=== PATIENT | female | born 1965 | race American Indian/Alaskan Native ===

== ENCOUNTER 2020-04-29 16:56 | Emergency (ER) | payer SELFPAY ==
[2020-04-29 17:31] VITALS: BP 142/72
[2020-04-29] MEDS ORDERED: LIDOCAINE VISCOUS 2% 15 ML ORAL LIQD PO ONE (23:32)
[2020-04-29] MEDS ORDERED: ALUM-MAG HYDROXIDE-SIMETHICONE 200-200-20MG/5ML ORAL LIQD 30 ML PO ONE (23:32)
[2020-04-29 23:55] LABS: Basophils % (Auto) 0.5 % (0.0-1.8); Eosinophils # (Auto) 0.1 K/mm3 (0.0-0.4); Eosinophils % (Auto) 0.7 % (0.0-4.3); Hematocrit 37.8 % (30.3-42.9); Hemoglobin 12.5 gm/dl (10.1-14.3); Lymphocytes # (Auto) 2.1 K/mm3 (1.2-5.4); Lymphocytes % (Auto) 26.3 % (13.4-35.0); Mean Corpuscular HGB Conc 33 % (30-34); Mean Corpuscular Volume 91 fl (79-97); Monocytes # (Auto) 0.6 K/mm3 (0.0-0.8); Monocytes % (Auto) 7.9 % (0.0-7.3); Platelet Count 199 K/mm3 (140-440); Red Blood Count 4.14 M/mm3 (3.65-5.03); Red Cell Distribution Width 13.5 % (13.2-15.2)
[2020-04-30 00:19] LABS: Alanine Aminotransferase 13 units/L (7-56); Albumin 4.7 g/dL (3.9-5); Blood Urea Nitrogen 4 mg/dL (7-17); Calcium 10.4 mg/dL (8.4-10.2); Hemolysis Index 2
[2020-04-30 00:22] LABS: BUN/Creatinine Ratio 7
--- NOTE | 2020-04-30 00:32 | XRay Report ---
CHEST PA AND LATERAL VIEWS INDICATION: chest pain. COMPARISON: 07/04/2018 FINDINGS: Support devices: None Heart: Normal and unchanged Lungs/Pleura: No acute pulmonary or pleural findings. IMPRESSION: 1. No acute disease and no interval change. Signer Name: Kris Langley MD Signed: 04/30/2020 12:28 AM Workstation Name: [id number]
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
--- NOTE | 2020-04-30 01:12 | Emergency Department Report ---
ED General Adult HPI - General Chief complaint: Sore Throat Stated complaint: FEELS LIKE SOMETHING STUCK IN CHEST Time Seen by Provider: 04/29/20 23:32 Source: patient Mode of arrival: Ambulatory Limitations: No Limitations - History of Present Illness Initial comments: Patient 54-year-old -[place] female presents for epigastric pain x3 days. States she feels like it something there after taking the Nexium tablet yesterday. Patient denies fevers, chills, nausea vomiting. There is been no fever, chills, or nausea vomiting. Patient is tolerating p.o. intake. There is no shortness of breath, stridor, or other complaint. Symptoms described as 4/10 pain sharp exacerbated by deep inspiration and movement. Symptoms are relieved by rest and offloading. Onset/Timin -: days(s) Location: chest (chest wall ) Severity scale (0 -10): 6 Quality: sharp Consistency: intermittent Improves with: none Worsens with: none Associated Symptoms: chest pain (chest wall pain ). denies: cough, diaphoresis, fever/chills, headaches, loss of appetite, nausea/vomiting, rash, seizure, other Treatments Prior to Arrival: none - Related Data Previous Rx's Medication Instructions Recorded Last Taken Type Metoprolol Xl [Metoprolol 25 mg PO QDAY #30 tablet 11/24/15 Unknown Rx SUCCINATE ER TAB] Esomeprazole Magnesium [Nexium 20 mg PO QDAY #20 capsule. 07/04/18 Unknown Rx 24Hr] Naproxen 500 mg PO BID PRN #30 tablet 04/30/20 Unknown Rx Allergies Allergy/AdvReac Type Severity Reaction Status Date / Time No Known Allergies Allergy Verified 11/22/15 22:26 ED Review of Systems ROS: Stated complaint: FEELS LIKE SOMETHING STUCK IN CHEST Other details as noted in HPI Constitutional: denies: chills, fever Eyes: denies: eye pain, eye discharge, vision change ENT: denies: ear pain, throat pain Respiratory: denies: cough, shortness of breath, wheezing Cardiovascular: denies: chest pain, palpitations Endocrine: see HPI Gastrointestinal: abdominal pain (epigastric burning ), vomiting. denies: nausea, diarrhea, constipation, hematemesis, melena, hematochezia Genitourinary: denies: urgency, dysuria, frequency, hematuria, discharge, dyspareunia Musculoskeletal: denies: back pain, joint swelling, arthralgia Skin: as per HPI Neurological: denies: headache, weakness, paresthesias Psychiatric: denies: anxiety, depression Hematological/Lymphatic: denies: easy bleeding, easy bruising ED Past Medical Hx - Past Medical History Previous Medical History?: Yes Hx Congestive Heart Failure: No Hx Diabetes: No Hx Asthma: No Hx COPD: No Hx HIV: No Additional medical history: palpitations(related to my hormones/menopause) - Surgical History Past Surgical History?: No - Social History Smoking Status: Never Smoker Substance Use Type: Alcohol - Medications Home Medications: Home Medications Medication Instructions Recorded Confirmed Last Taken Type Metoprolol Xl [Metoprolol 25 mg PO QDAY #30 tablet 11/24/15 Unknown Rx SUCCINATE ER TAB] Esomeprazole Magnesium [Nexium 20 mg PO QDAY #20 capsule. 07/04/18 Unknown Rx 24Hr] Naproxen 500 mg PO BID PRN #30 tablet 04/30/20 Unknown Rx ED Physical Exam - General Limitations: No Limitations General appearance: alert, in no apparent distress - Head Head exam: Present: atraumatic, normocephalic - Eye Eye exam: Present: normal appearance, PERRL, EOMI Pupils: Present: normal accommodation - ENT ENT exam: Present: normal exam, normal orophraynx, mucous membranes moist, TM's normal bilaterally, normal external ear exam - Neck Neck exam: Present: normal inspection, tenderness, full ROM, lymphadenopathy. Absent: thyromegaly - Respiratory Respiratory exam: Present: normal lung sounds bilaterally, chest wall tenderness (right anterior lateral , no spepitus, no cyserfl). Absent: respiratory distress, wheezes, stridor - Cardiovascular Cardiovascular Exam: Present: regular rate, normal rhythm, normal heart sounds. Absent: systolic murmur, diastolic murmur, rubs, gallop - GI/Abdominal GI/Abdominal exam: Present: soft, normal bowel sounds. Absent: distended, tenderness, bruit, pulsatile mass - Rectal Rectal exam: Present: deferred - External exam: Present: normal external exam - Extremities Exam Extremities exam: Present: normal inspection - Back Exam Back exam: Present: normal inspection, full ROM. Absent: tenderness - Neurological Exam Neurological exam: Present: alert, oriented X3 - Psychiatric Psychiatric exam: Present: normal affect, normal mood, anxious - Skin Skin exam: Present: warm, dry, intact, normal color. Absent: rash ED Course Vital Signs 04/29/20 17:28 Temperature 99.2 F Pulse Rate 75 Respiratory 18 Rate Blood Pressure 142/72 [Right] O2 Sat by Pulse 100 Oximetry ED Medical Decision Making - Lab Data Result diagrams: 04/29/20 23:41 04/29/20 23:41 Labs 04/29/20 04/29/20 23:41 23:41 WBC 8.1 RBC 4.14 Hgb 12.5 Hct 37.8 MCV 91 MCH 30 MCHC 33 RDW 13.5 Plt Count 199 Lymph % (Auto) 26.3 Shannon % (Auto) 7.9 H Eos % (Auto) 0.7 Baso % (Auto) 0.5 Lymph # (Auto) 2.1 Shannon # (Auto) 0.6 Eos # (Auto) 0.1 Baso # (Auto) 0.0 Seg Neutrophils % 64.6 Seg Neutrophils # 5.2 Sodium 144 Potassium 4.6 Chloride 100.7 Carbon Dioxide 29 Anion Gap 19 BUN 4 L Creatinine 0.6 Estimated GFR > 60 BUN/Creatinine Ratio 7 Glucose 99 Calcium 10.4 H Total Bilirubin 0.50 AST 17 ALT 13 Alkaline Phosphatase 55 Total Protein 8.3 H Albumin 4.7 Albumin/Globulin Ratio 1.3 - Radiology Data Radiology results: report reviewed, image reviewed IMPRESSION: 1. No acute disease and no interval change. Signer Name: Kris Langley MD Signed: 04/30/2020 12:28 AM Workstation Name: [id number] - Medical Decision Making X-ray X normal no infiltrates no opacities. Patient currently tolerating p.o. intake without nausea vomiting. Airway is patent and non-obstructive. EKG normal sinus rhythm no ST elevation no abnormalities. Plan: DC to home prescription for NSAIDs PRN. Continue to take Nexium as needed for acid indigestion and PPI control. Patient will follow-up with GI as scheduled. Patient will follow-up with PCP as scheduled. Critical care attestation.: If time is entered above; I have spent that time in minutes in the direct care of this critically ill patient, excluding procedure time. ED Disposition Clinical Impression: GERD without esophagitis Disposition: DC-01 TO HOME OR SELFCARE Is pt being admited?: No Does the pt Need Aspirin: No Condition: Stable Instructions: Gastroesophageal Reflux Disease (ED), Diet for Ulcers and Gastritis (ED) Prescriptions: Naproxen 500 mg PO BID PRN #30 tablet PRN Reason: pain Referrals: CARLEE MCGINNIS MD [Staff Physician] - 3-5 Days Forms: Work/School Release Form(ED) Time of Disposition: 01:18
== END 2020-04-30 01:25 | disposition home or self-care (01) ==
LOC: ED 16:56
DX: K21.9 Gastro-esophageal reflux disease without esophagitis (principal); Z79.899 Other long term (current) drug therapy
CPT/HCPCS: 36415; 71046; 80053; 85025; 93005

== ENCOUNTER 2020-06-30 03:37 | Emergency (ER) | payer SELFPAY ==
[2020-06-30 04:01] VITALS: BP 118/67
[2020-06-30] MEDS ORDERED: ASPIRIN EC 325 MG TAB PO ONE (04:31)
[2020-06-30 05:24] LABS: Basophils % (Auto) 0.4 % (0.0-1.8); Eosinophils # (Auto) 0.1 K/mm3 (0.0-0.4); Eosinophils % (Auto) 0.9 % (0.0-4.3); Hematocrit 37.2 % (30.3-42.9); Hemoglobin 12.7 gm/dl (10.1-14.3); Lymphocytes # (Auto) 1.6 K/mm3 (1.2-5.4); Lymphocytes % (Auto) 23.4 % (13.4-35.0); Mean Corpuscular HGB Conc 34 % (30-34); Mean Corpuscular Volume 90 fl (79-97); Monocytes # (Auto) 0.5 K/mm3 (0.0-0.8); Monocytes % (Auto) 8.1 % (0.0-7.3); Platelet Count 173 K/mm3 (140-440); Red Blood Count 4.12 M/mm3 (3.65-5.03); Red Cell Distribution Width 13.3 % (13.2-15.2)
[2020-06-30 05:44] LABS: Alanine Aminotransferase 12 units/L (7-56); Albumin 4.4 g/dL (3.9-5); BUN/Creatinine Ratio 10; Blood Urea Nitrogen 6 mg/dL (7-17); Calcium 10.2 mg/dL (8.4-10.2); Hemolysis Index 2
--- NOTE | 2020-06-30 05:49 | XRay Report ---
ABDOMEN 2 VIEW(S) with PA chest INDICATION / CLINICAL INFORMATION: chest and abdominal discomfort. COMPARISON: Chest radiograph 04/29/2020 FINDINGS: CHEST: The cardiomediastinal silhouette is unremarkable. The lungs are clear. No pleural effusion. No pneumothorax. A rounded metallic structure overlying the right thoracic inlet is presumably external to the patient. TUBES / LINES: None. BOWEL GAS PATTERN: No significant abnormality. FREE AIR / EXTRALUMINAL GAS: None seen. ADDITIONAL FINDINGS: Bilateral tubal Essure devices in place. IMPRESSION: 1. No acute findings. 2. A rounded metallic structure overlying the right thoracic inlet is presumably external to the camille ent, though clinical correlation is recommended. Signer Name: Jerri Thorpe MD Signed: 06/30/2020 5:44 AM Workstation Name: [id number]
[2020-06-30 06:07] LABS: Bacteria,Urine 1+ /HPF (Negative); Bilirubin,Urine NEG (Negative); Blood,Urine NEG (Negative); Color,Urine Colorless (Yellow); Protein,Urine <15 mg/dL mg/dL (Negative); RBC,Urine < 1.0 /HPF (0.0-6.0); Urobilinogen,Urine < 2.0 mg/dL (<2.0); WBC,Urine < 1.0 /HPF (0.0-6.0)
--- NOTE | 2020-06-30 06:07 | Emergency Department Report ---
ED Abdominal Pain HPI - General Chief Complaint: Abdominal Pain Stated Complaint: ABDOMINAL PAIN, RIGHT ARM PAIN PUI?: No Source: patient Mode of arrival: Ambulatory Limitations: No Limitations - History of Present Illness Initial Comments: Patient is a 54-year-old -[place] female with no past medical history presents to the ED with complaint of acute onset persistent intermittent diffuse abdominal pressure and increased belching, bowel sounds and passing flatus for the last 8 hours. Patient states that the pressure and discomfort in the ab domen has been persistent and that she took Nexium as well as various medications including Pepto-Bismol in order to help with the discomfort from the increasing gas in the abdomen. Patient denies chest pain, shortness of breath, dizziness, syncope, fever, chills, dysuria, urinary frequency and urgency, headache, palpitations, cough, sore throat, hematochezia, hematemesis, change in vision and headache. MD Complaint: abdominal pain, other (belching and passing flatus) -: Sudden, hour(s) (8) Location: diffuse Radiation: none Migration to: no migration Severity: mild Severity scale (0 -10): 1 Quality: aching, dull Consistency: intermittent Improves With: nothing Worsens With: nothing Associated Symptoms: denies other symptoms, nausea. denies: vomiting, diarrhea, fever, chills, constipation, dysuria, hematemesis, hematochezia, melena, hematuria, anorexia, syncope - Related Data Previous Rx's Medication Instructions Recorded Last Taken Type Metoprolol Xl [Metoprolol 25 mg PO QDAY #30 tablet 11/24/15 Unknown Rx SUCCINATE ER TAB] Esomeprazole Magnesium [Nexium 20 mg PO QDAY #20 capsule. 07/04/18 Unknown Rx 24Hr] Naproxen 500 mg PO BID PRN #30 tablet 04/30/20 Unknown Rx Famotidine [Pepcid] 20 mg PO Q12H #60 tablet 06/30/20 Unknown Rx Ondansetron [Zofran Odt] 4 mg PO Q6HR PRN #15 tab.rapdis 06/30/20 Unknown Rx Allergies Allergy/AdvReac Type Severity Reaction Status Date / Time No Known Allergies Allergy Verified 11/22/15 22:26 ED Review of Systems ROS: Stated complaint: ABDOMINAL PAIN, RIGHT ARM PAIN Other details as noted in HPI Constitutional: denies: chills, fever Eyes: denies: eye pain, eye discharge, vision change ENT: denies: ear pain, throat pain Respiratory: denies: cough, shortness of breath, wheezing Cardiovascular: denies: chest pain, palpitations Endocrine: no symptoms reported Gastrointestinal: abdominal pain, other (Belching and flatus). denies: nausea, vomiting, diarrhea Genitourinary: denies: urgency, dysuria, discharge Musculoskeletal: denies: back pain, joint swelling, arthralgia Skin: denies: rash, lesions Neurological: denies: headache, weakness, paresthesias Psychiatric: denies: anxiety, depression Hematological/Lymphatic: denies: easy bleeding, easy bruising ED Past Medical Hx - Past Medical History Hx Congestive Heart Failure: No Hx Diabetes: No Hx Asthma: No Hx COPD: No Hx HIV: No Additional medical history: palpitations(related to my hormones/menopause) - Social History Smoking Status: Never Smoker Substance Use Type: None - Medications Home Medications: Home Medications Medication Instructions Recorded Confirmed Last Taken Type Metoprolol Xl [Metoprolol 25 mg PO QDAY #30 tablet 11/24/15 Unknown Rx SUCCINATE ER TAB] Esomeprazole Magnesium [Nexium 20 mg PO QDAY #20 capsule.dr 07/04/18 Unknown Rx 24Hr] Naproxen 500 mg PO BID PRN #30 tablet 04/30/20 Unknown Rx Famotidine [Pepcid] 20 mg PO Q12H #60 tablet 06/30/20 Unknown Rx Ondansetron [Zofran Odt] 4 mg PO Q6HR PRN #15 tab.rapdis 06/30/20 Unknown Rx ED Physical Exam - General Limitations: No Limitations General appearance: alert, in no apparent distress - Head Head exam: Present: atraumatic, normocephalic, normal inspection - Eye Eye exam: Present: normal appearance, PERRL, EOMI Pupils: Present: normal accommodation - ENT ENT exam: Present: normal exam, normal orophraynx, mucous membranes moist, TM's normal bilaterally, normal external ear exam - Neck Neck exam: Present: normal inspection, full ROM - Respiratory Respiratory exam: Present: normal lung sounds bilaterally. Absent: respiratory distress, wheezes, rales, rhonchi, chest wall tenderness, prolonged expiratory - Cardiovascular Cardiovascular Exam: Present: regular rate, normal rhythm, normal heart sounds. Absent: systolic murmur, diastolic murmur, rubs, gallop - GI/Abdominal GI/Abdominal exam: Present: soft, normal bowel sounds. Absent: tenderness, guarding, rebound, hyperactive bowel sounds, hypoactive bowel sounds - Extremities Exam Extremities exam: Present: normal inspection, full ROM, normal capillary refill - Back Exam Back exam: Present: normal inspection, full ROM. Absent: tenderness, CVA tenderness (R), CVA tenderness (L), muscle spasm, paraspinal tenderness, vertebral tenderness - Neurological Exam Neurological exam: Present: alert, oriented X3, CN II-XII intact, normal gait, reflexes normal - Psychiatric Psychiatric exam: Present: normal affect, normal mood - Skin Skin exam: Present: warm, dry, intact, normal color. Absent: rash ED Course Vital Signs 06/30/20 03:59 Temperature 98.1 F Pulse Rate 74 Respiratory 18 Rate Blood Pressure 118/67 O2 Sat by Pulse 100 Oximetry ED Medical Decision Making - Lab Data Result diagrams: 06/30/20 05:03 06/30/20 05:03 - EKG Data EKG shows normal: sinus rhythm Rate: normal - EKG Data Interpretation: normal EKG 06/30/20 06:23 EKG shows normal sinus rhythm with ventricular rate of [address] or T wave abnormalities. - Radiology Data Radiology results: report reviewed, image reviewed Findings [address] [address] XRay Report Signed Patient: LORNA MCCLENDON MR#: [id number] : 1965 Acct:[id number] Age/Sex: 54 / F ADM Date: 06/30/20 Loc: ED Attending Dr: Ordering Physician: BEAN MOTA Date of Service: 06/30/20 Procedure(s): XR abd series w cxr 1V Accession Number(s): [id number] cc: BEAN MOTA Fluoro Time In Minutes: ABDOMEN 2 VIEW(S) with PA chest INDICATION / CLINICAL INFORMATION: chest and abdominal discomfort. COMPARISON: Chest radiograph 04/29/2020 FINDINGS: CHEST: The cardiomediastinal silhouette is unremarkable. The lungs are clear. No pleural effusion. No pneumothorax. A rounded metallic structure overlying the right thoracic inlet is presumably external to the patient. TUBES / LINES: None. BOWEL GAS PATTERN: No significant abnormality. FREE AIR / EXTRALUMINAL GAS: None seen. ADDITIONAL FINDINGS: Bilateral tubal Essure devices in place. IMPRESSION: 1. No acute findings. 2. A rounded metallic structure overlying the right thoracic inlet is presumably external to the patient, though clinical correlation is recommended. Signer Name: Jerri Thorpe MD Signed: 06/30/2020 5:44 AM Workstation Name: [id number] Transcribed By: [facility] Dictated By: Jerir Thorpe MD Electronically Authenticated By: Jerri Thorpe MD Signed Date/Time: 06/30/20543 DD/ 0 TD/TT: - Medical Decision Making This is a 54-year-old -[place]ban[place] female with no past medical history presents to the ED with complaint of acute onset persistent intermittent diffuse abdominal pressure and increased belching, bowel sounds and passing flatus for the last 8 hours. Patient states that the pressure and discomfort in the abdomen has been persistent and that she took Nexium as well as various medications including Pepto-Bismol in order to help with the discomfort from the increasing gas in the abdomen. In the ED, patient is alert and oriented x3 and is not in distress. On arrival in the ED, patient symptoms had resolved but still the patient wanted to be evaluated to rule out any life threatening emergencies. Lab test results were reviewed and are all nonactionable. EKG shows normal sinus rhythm with a ventricular rate of [address] or T wave abnormalities. Chest x-ray and abdomen series x-ray showed no acute abnormalities. Patient was treated in the ED with aspirin. On reevaluation, patient felt better and the symptoms resolved. Patient was discharged home on medications of antacids and antiemetics, and was advised to follow-up with her primary care physician in 5 to 7 days for reevaluation or return to the ED immediately if symptoms get worse. - Differential Diagnosis GERD; Dyspepsia; Gastroenteritis; Pancreatitis; ACS Critical care attestation.: If time is entered above; I have spent that time in minutes in the direct care of this critically ill patient, excluding procedure time. ED Disposition Clinical Impression: Dyspepsia GERD (gastroesophageal reflux disease) Qualifiers: Esophagitis presence: without esophagitis Qualified Code(s): K21.9 - Gastro- esophageal reflux disease without esophagitis Disposition: TO HOME OR SELFCARE Is pt being admited?: No Does the pt Need Aspirin: No Condition: Stable Instructions: Abdominal Pain (ED), Abdominal Pain, Adult, [id number], Gastroesophageal Reflux Disease, Adult, [id number], Indigestion, [id number] Additional Instructions: All lab test results were reviewed and are all nonactionable. Abdominal series x-ray with chest x-ray showed no acute cardiopulmonary abnormalities or GI abnormalities. Your symptoms are likely due to acid reflux or indigestion. Therefore take medication as advised, drink plenty of fluids and follow-up with your primary care physician in 5 to 7 days for reevaluation or return to the ED immediately if symptoms get worse. Prescriptions: Famotidine [Pepcid] 20 mg PO Q12H #60 tablet Ondansetron [Zofran Odt] 4 mg PO Q6HR PRN #15 tab.rapdis PRN Reason: Nausea Referrals: HERO RUIZ MD [Staff Physician] - 3-5 Days Time of Disposition: 06:13 Print Language: CITIZEN OF [place]
== END 2020-06-30 06:25 | disposition home or self-care (01) ==
LOC: ED 03:37
DX: K21.9 Gastro-esophageal reflux disease without esophagitis (principal)
CPT/HCPCS: 36415; 74022; 80053; 81001; 83690; 84484; 85025; 93005

== ENCOUNTER 2020-09-24 04:38 | Emergency (ER) | payer OTHER ==
--- NOTE | 2020-09-24 04:48 | Event Note ---
ED Screening Note Date of service: 09/24/20 Time: 04:46 ED Screening Note: pt is a 54 y/o aaf with hx, htn, & PSVT who presents for palpitations that awakened her this am, pt denies sob, no dizziness, no n/v, no diaphoresis, pt does endorse associated anxiety with onset of palpitations. This initial assessment/diagnostic orders/clinical plan/treatment(s) is/are subject to change based on patients health status, clinical progression and re- assessment by fellow clinical providers in the ED. Further treatment and workup at subsequent clinical providers discretion. Patient/guardian urged not to elope from the ED as their condition may be serious if not clinically assessed and managed. Initial orders include: ekg, trop, cxr, cbc, cmp
[2020-09-24 05:02] LABS: Basophils % (Auto) 0.7 % (0.0-1.8); Eosinophils # (Auto) 0.3 K/mm3 (0.0-0.4); Eosinophils % (Auto) 3.8 % (0.0-4.3); Hematocrit 36.1 % (30.3-42.9); Hemoglobin 12.2 gm/dl (10.1-14.3); Lymphocytes # (Auto) 3.2 K/mm3 (1.2-5.4); Lymphocytes % (Auto) 46.1 % (13.4-35.0); Mean Corpuscular HGB Conc 34 % (30-34); Mean Corpuscular Volume 93 fl (79-97); Monocytes # (Auto) 0.5 K/mm3 (0.0-0.8); Platelet Count 177 K/mm3 (140-440); Red Blood Count 3.91 M/mm3 (3.65-5.03); Red Cell Distribution Width 13.8 % (13.2-15.2)
--- NOTE | 2020-09-24 05:11 | XRay Report ---
CHEST 2 VIEWS INDICATION / CLINICAL INFORMATION: palpitations. COMPARISON: 04/29/2020 FINDINGS: SUPPORT DEVICES: None. HEART / MEDIASTINUM: No significant abnormality. LUNGS / PLEURA: No significant pulmonary or pleural abnormality. No pneumothorax. ADDITIONAL FINDINGS: No significant additional findings. IMPRESSION: 1. No acute findings. Signer Name: Rony Ho MD Signed: 09/24/2020 5:06 AM Workstation Name: [id number]
[2020-09-24 05:24] LABS: Alanine Aminotransferase 14 units/L (7-56); Albumin 4.5 g/dL (3.9-5); Blood Urea Nitrogen 8 mg/dL (7-17); Calcium 9.5 mg/dL (8.4-10.2); Hemolysis Index 8
[2020-09-24 05:26] LABS: BUN/Creatinine Ratio 11
--- NOTE | 2020-09-24 06:30 | Emergency Department Report ---
ED Palpitations HPI - General Chief Complaint: Arrhythmia/Palpitations Stated Complaint: RAPID HEART RATE Time Seen by Provider: 09/24/20 06:08 Source: patient Mode of arrival: Ambulatory Limitations: No Limitations - History of Present Illness Initial Comments: 54-year-old female presents to ED with complaint of heart racing. Patient states she awoke from sleep and heart was beating fast. Patient reports some associated anxiety with this. She states this lasted for approximately 10 minutes then resolved, however she felt the need to come to the emergency room for evaluation. Patient denies any chest pain, shortness of breath, fever, leg pain or swelling. Patient reports she takes metoprolol. States her doctor put her on this medication a few years ago because of her "high stress job." Patient states she believes it was for palpitations. MD Complaint: "heart racing" -: This morning Context: awoke with symptoms Arrythmia History: SVT Associated Symptoms: anxiety. denies: chest pain, shortness of breath, syncope, near-syncope, nausea/vomiting - Related Data Previous Rx's Medication Instructions Recorded Last Taken Type Metoprolol Xl [Metoprolol 25 mg PO QDAY #30 tablet 11/24/15 Unknown Rx SUCCINATE ER TAB] Esomeprazole Magnesium [Nexium 20 mg PO QDAY #20 capsule. 07/04/18 Unknown Rx 24Hr] Naproxen 500 mg PO BID PRN #30 tablet 04/30/20 Unknown Rx Famotidine [Pepcid] 20 mg PO Q12H #60 tablet 06/30/20 Unknown Rx Ondansetron [Zofran Odt] 4 mg PO Q6HR PRN #15 tab.rapdis 06/30/20 Unknown Rx Allergies Allergy/AdvReac Type Severity Reaction Status Date / Time No Known Allergies Allergy Verified 11/22/15 22:26 ED Review of Systems ROS: Stated complaint: RAPID HEART RATE Other details as noted in HPI Comment: All other systems reviewed and negative Constitutional: denies: chills, fever Respiratory: denies: shortness of breath Cardiovascular: palpitations. denies: chest pain Gastrointestinal: denies: nausea, vomiting Musculoskeletal: other (Denies leg pain or swelling) ED Past Medical Hx - Past Medical History Previous Medical History?: Yes Hx Congestive Heart Failure: No Hx Diabetes: No Hx Asthma: No Hx COPD: No Hx HIV: No Additional medical history: palpitations(related to my hormones/menopause) - Surgical History Past Surgical History?: No - Social History Smoking Status: Never Smoker Substance Use Type: None - Medications Home Medications: Home Medications Medication Instructions Recorded Confirmed Last Taken Type Metoprolol Xl [Metoprolol 25 mg PO QDAY #30 tablet 11/24/15 Unknown Rx SUCCINATE ER TAB] Esomeprazole Magnesium [Nexium 20 mg PO QDAY #20 capsule. 07/04/18 Unknown Rx 24Hr] Naproxen 500 mg PO BID PRN #30 tablet 04/30/20 Unknown Rx Famotidine [Pepcid] 20 mg PO Q12H #60 tablet 06/30/20 Unknown Rx Ondansetron [Zofran Odt] 4 mg PO Q6HR PRN #15 tab.rapdis 06/30/20 Unknown Rx ED Physical Exam - General Limitations: No Limitations General appearance: alert, in no apparent distress - Head Head exam: Present: atraumatic, normocephalic - Eye Eye exam: Present: normal appearance, EOMI - ENT ENT exam: Present: mucous membranes moist - Neck Neck exam: Present: normal inspection - Respiratory Respiratory exam: Present: normal lung sounds bilaterally. Absent: respiratory distress - Cardiovascular Cardiovascular Exam: Present: regular rate, normal rhythm - GI/Abdominal GI/Abdominal exam: Present: soft. Absent: distended, tenderness - Extremities Exam Extremities exam: Present: normal inspection. Absent: pedal edema, calf tenderness - Neurological Exam Neurological exam: Present: alert, oriented X3, CN II-XII intact. Absent: motor sensory deficit - Psychiatric Psychiatric exam: Present: normal affect, normal mood - Skin Skin exam: Present: warm, dry, intact, normal color ED Course Vital Signs 09/24/20 09/24/20 09/24/20 04:43 06:00 06:44 Temperature 97.7 F 98.1 F Pulse Rate 83 56 L 61 Respiratory 18 11 L 12 Rate Blood Pressure 145/78 153/83 Blood Pressure 148/70 [Right] O2 Sat by Pulse 100 100 99 Oximetry ED Medical Decision Making - Lab Data Result diagrams: 09/24/20 04:52 09/24/20 04:52 - EKG Data -: EKG Interpreted by [facility] EKG shows normal: sinus rhythm, axis, intervals, QRS complexes, ST-T waves Rate: normal - EKG Data Interpretation: no acute changes - Radiology Data Radiology results: report reviewed, image reviewed - Medical Decision Making 54-year-old female presents to ED with complaint of palpitations. Vital signs are normal, with blood pressure only mildly elevated. Patient is not tachycardic at this time. EKG is normal. Labs are unremarkable, except for TSH, which is slightly elevated. Free T4 is normal. Patient is feeling much better at this time. Will discharge home. Outpatient follow-up advised, return precautions given. - Differential Diagnosis Arrhythmia, anxiety, electrolyte abnormality, hyperthyroidism Critical care attestation.: If time is entered above; I have spent that time in minutes in the direct care of this critically ill patient, excluding procedure time. ED Disposition Clinical Impression: Palpitations, Abnormal thyroid stimulating hormone (TSH) level Disposition: TO HOME OR SELFCARE Is pt being admited?: No Condition: Stable Instructions: Palpitations, [id number] Referrals: PRIMARY CARE, [Primary Care Provider] - 3-5 Days Time of Disposition: 06:36
[2020-09-24 06:45] VITALS: BP 148/70
== END 2020-09-24 06:46 | disposition home or self-care (01) ==
LOC: ED 04:38
DX: R79.89 Other specified abnormal findings of blood chemistry (principal); R00.2 Palpitations; Z79.899 Other long term (current) drug therapy
CPT/HCPCS: 36415; 71046; 80053; 84439; 84443; 84484; 85025; 93005; 99283

== ENCOUNTER 2021-02-21 23:26 | Emergency (ER) | payer OTHER | END 2021-02-22 02:21 | LOC: ED 23:26 | DX: R07.89 Other chest pain (principal); Z53.21 Procedure and treatment not carried out due to patient leaving prior to being seen by health care provider ==

== ENCOUNTER 2021-06-06 18:20 | Emergency (ER) | payer OTHER ==
[2021-06-06 19:35] LABS: Basophils # (Auto) 0.1 K/mm3 (0.0-0.1); Basophils % (Auto) 1.1 % (0.0-1.8); Eosinophils # (Auto) 0.1 K/mm3 (0.0-0.4); Eosinophils % (Auto) 1.7 % (0.0-4.3); Hematocrit 36.9 % (30.3-42.9); Hemoglobin 12.2 gm/dl (10.1-14.3); Lymphocytes # (Auto) 2.5 K/mm3 (1.2-5.4); Lymphocytes % (Auto) 35.3 % (13.4-35.0); Mean Corpuscular HGB Conc 33 % (30-34); Mean Corpuscular Volume 91 fl (79-97); Monocytes # (Auto) 0.7 K/mm3 (0.0-0.8); Monocytes % (Auto) 10.5 % (0.0-7.3); Platelet Count 224 K/mm3 (140-440); Red Blood Count 4.04 M/mm3 (3.65-5.03); Red Cell Distribution Width 13.6 % (13.2-15.2)
--- NOTE | 2021-06-06 19:55 | XRay Report ---
CHEST 2 VIEWS INDICATION / CLINICAL INFORMATION: palpitations. COMPARISON: 09/24/2020 FINDINGS: SUPPORT DEVICES: None. HEART / MEDIASTINUM: No significant abnormality. LUNGS / PLEURA: No significant pulmonary or pleural abnormality. No pneumothorax. ADDITIONAL FINDINGS: No significant additional findings. IMPRESSION: 1. No acute findings. Signer Name: Richard Patterson MD Signed: 06/06/2021 7:50 PM Workstation Name: [id number]
[2021-06-06 20:02] LABS: Alanine Aminotransferase 13 units/L (7-56); Albumin 4.5 g/dL (3.9-5); Blood Urea Nitrogen 14 mg/dL (7-17); Calcium 9.5 mg/dL (8.4-10.2); Hemolysis Index 6
[2021-06-06] MEDS ORDERED: SODIUM CHLORIDE 0.9% 1000 ML 1,000 ML IV ONE (20:04)
[2021-06-06 20:07] LABS: BUN/Creatinine Ratio 23
--- NOTE | 2021-06-06 20:26 | Emergency Department Report ---
ED Palpitations HPI - General Chief Complaint: Arrhythmia/Palpitations Stated Complaint: PALPITATIONS Time Seen by Provider: 06/06/21 19:51 Source: patient Mode of arrival: Ambulatory Limitations: No Limitations - History of Present Illness Initial Comments: 55-year-old female presents to ED with complaint of palpitations, onset just before the ED arrival. Patient denies any chest pain, shortness of breath, fever, nausea, vomiting, leg pain or swelling. Patient reports previous history of palpitations. States she is currently taking metoprolol due to her palpitations. Loft Worker: Dr Lynda Moseley MD Complaint: rapid heart beat -: This evening Context: occured during rest Associated Symptoms: denies: chest pain, shortness of breath, syncope, near- syncope, nausea/vomiting, anxiety, cough - Related Data Previous Rx's Medication Instructions Recorded Last Taken Type Metoprolol Xl [Metoprolol 25 mg PO QDAY #30 tablet 11/24/15 Unknown Rx SUCCINATE ER TAB] Esomeprazole Magnesium [Nexium 20 mg PO QDAY #20 capsule. 07/04/18 Unknown Rx 24Hr] Naproxen 500 mg PO BID PRN #30 tablet 04/30/20 Unknown Rx Famotidine [Pepcid] 20 mg PO Q12H #60 tablet 06/30/20 Unknown Rx Ondansetron [Zofran Odt] 4 mg PO Q6HR PRN #15 tab.rapdis 06/30/20 Unknown Rx Allergies Allergy/AdvReac Type Severity Reaction Status Date / Time No Known Allergies Allergy Verified 11/22/15 22:26 ED Review of Systems ROS: Stated complaint: PALPITATIONS Other details as noted in HPI Comment: All other systems reviewed and negative Constitutional: denies: chills, fever Respiratory: denies: shortness of breath Cardiovascular: palpitations. denies: chest pain Gastrointestinal: denies: abdominal pain, nausea, vomiting, diarrhea ED Past Medical Hx - Past Medical History Hx Congestive Heart Failure: No Hx Diabetes: No Hx Asthma: No Hx COPD: No Hx HIV: No Additional medical history: palpitations(related to my hormones/menopause) - Social History Smoking Status: Never Smoker Substance Use Type: None - Medications Home Medications: Home Medications Medication Instructions Recorded Confirmed Last Taken Type Metoprolol Xl [Metoprolol 25 mg PO QDAY #30 tablet 11/24/15 Unknown Rx SUCCINATE ER TAB] Esomeprazole Magnesium [Nexium 20 mg PO QDAY #20 capsule.dr 07/04/18 Unknown Rx 24Hr] Naproxen 500 mg PO BID PRN #30 tablet 04/30/20 Unknown Rx Famotidine [Pepcid] 20 mg PO Q12H #60 tablet 06/30/20 Unknown Rx Ondansetron [Zofran Odt] 4 mg PO Q6HR PRN #15 tab.rapdis 06/30/20 Unknown Rx ED Physical Exam - General Limitations: No Limitations General appearance: alert, in no apparent distress - Head Head exam: Present: atraumatic, normocephalic - Eye Eye exam: Present: normal appearance, EOMI - ENT ENT exam: Present: mucous membranes moist - Neck Neck exam: Present: normal inspection - Respiratory Respiratory exam: Present: normal lung sounds bilaterally. Absent: respiratory distress - Cardiovascular Cardiovascular Exam: Present: normal rhythm, tachycardia - GI/Abdominal GI/Abdominal exam: Present: soft. Absent: distended, tenderness - Extremities Exam Extremities exam: Present: normal inspection - Neurological Exam Neurological exam: Present: alert, oriented X3 - Psychiatric Psychiatric exam: Present: normal affect, normal mood - Skin Skin exam: Present: warm, dry, intact, normal color ED Course Vital Signs 06/06/21 06/06/21 06/06/21 18:47 19:55 20:04 Temperature 98.0 F Pulse Rate 121 H 90 Respiratory 20 12 Rate Blood Pressure Blood Pressure 113/65 [Right] O2 Sat by Pulse 99 99 98 Oximetry 06/06/21 06/06/21 06/06/21 20:16 20:31 20:45 Temperature Pulse Rate 94 H 87 86 Respiratory 11 L 12 12 Rate Blood Pressure 116/74 116/74 Blood Pressure [Right] O2 Sat by Pulse 97 98 98 Oximetry 06/06/21 06/06/21 06/06/21 21:01 21:06 21:15 Temperature 98.0 F Pulse Rate 83 82 82 Respiratory 13 9 L 12 Rate Blood Pressure 116/74 116/74 Blood Pressure 116/74 [Right] O2 Sat by Pulse 98 97 97 Oximetry 06/06/21 06/06/21 21:31 21:45 Temperature Pulse Rate 79 80 Respiratory 11 L 9 L Rate Blood Pressure 126/78 126/78 Blood Pressure [Right] O2 Sat by Pulse 100 100 Oximetry - Reevaluation(s) Reevaluation #1: 06/06/21 20:52 Rhythm strip now shows that patient is in sinus rhythm with heart rate of 85. ED Medical Decision Making - Lab Data Result diagrams: 06/06/21 19:26 06/06/21 19:26 - EKG Data -: EKG Interpreted by Me EKG shows normal: intervals, QRS complexes, ST-T waves Rate: tachycardia - EKG Data Interpretation: other (Junctional tachycardia) - Radiology Data Radiology results: report reviewed, image reviewed - Medical Decision Making 55-year-old female presents to ED with palpitations. Patient reports history of tachycardia, placed on metoprolol for this reason. Initial EKG showed a junctional tachycardia with no ST changes noted. Re-evaluation showed that patient converted to normal sinus rhythm with a heart rate in the 80s. Labs unremarkable. Chest x-ray normal. Patient feels comfortable with discharge at this time. Outpatient follow-up advised with [facility], return precautions given. - Differential Diagnosis Palpitations, ACS, dehydration, anxiety Critical care attestation.: If time is entered above; I have spent that time in minutes in the direct care of this critically ill patient, excluding procedure time. ED Disposition Clinical Impression: Palpitations Disposition: 01 HOME / SELF CARE / HOMELESS Is pt being admited?: No Condition: Stable Instructions: Palpitations, [id number], Ambulatory Cardiac Monitoring Referrals: NIMISHA MOSELEY MD [Staff Physician] - 3-5 Days PRIMARY CAREMD [Referring] - 3-5 Days Time of Disposition: 21:21
[2021-06-06 22:07] VITALS: BP 126/78
--- NOTE | 2021-06-09 11:21 | Electrocardiograph Report ---
[facility] Test Date: 2021-06-06 Test Time: 19:52:24 Pat Name: LORNA MCCLENDON Department: Room: Gender: F Puppet Maker: MIREILLE : 1965 Requested By: BENJAMIN LANCASTER Order Number: [id number] Reading MD: Tima Cruz Measurements Intervals [place] Rate: 119 P: NM: QRS: 6 QRSD: 73 T: 25 QT: 326 QTc: 457 Interpretive Statements Junctional tachycardia Low voltage, extremity leads No previous ECG available for comparison Electronically Signed On 06-09-2021 11:21:13 EST by Tima Cruz
== END 2021-06-06 22:08 | disposition home or self-care (01) ==
LOC: ED 18:20
DX: R00.2 Palpitations (principal)
CPT/HCPCS: 36415; 71046; 80053; 84443; 84484; 85025; 93005; 96360; 99284; J7030; Q0162

== ENCOUNTER 2021-07-17 19:32 | Emergency (ER) | payer OTHER ==
[2021-07-17 19:37] VITALS: BP 124/56
[2021-07-17 21:19] LABS: Basophils % (Auto) 0.7 % (0.0-1.8); Eosinophils # (Auto) 0.1 K/mm3 (0.0-0.4); Eosinophils % (Auto) 1.7 % (0.0-4.3); Hematocrit 36.9 % (30.3-42.9); Hemoglobin 11.8 gm/dl (10.1-14.3); Lymphocytes # (Auto) 1.8 K/mm3 (1.2-5.4); Lymphocytes % (Auto) 32.6 % (13.4-35.0); Mean Corpuscular HGB Conc 32 % (30-34); Mean Corpuscular Volume 94 fl (79-97); Monocytes # (Auto) 0.5 K/mm3 (0.0-0.8); Monocytes % (Auto) 8.7 % (0.0-7.3); Platelet Count 192 K/mm3 (140-440); Red Blood Count 3.95 M/mm3 (3.65-5.03); Red Cell Distribution Width 13.5 % (13.2-15.2)
[2021-07-17 21:35] LABS: Alanine Aminotransferase 10 units/L (7-56); Albumin 4.5 g/dL (3.9-5); Blood Urea Nitrogen 14 mg/dL (7-17); Calcium 9.8 mg/dL (8.4-10.2); Hemolysis Index 4
[2021-07-17 21:37] LABS: BUN/Creatinine Ratio 20
--- NOTE | 2021-07-17 23:18 | Emergency Department Report ---
ED General Adult HPI - General Chief complaint: Skin/Abscess/Foreign Body Stated complaint: LIGHT HEADED/SKIN BURNING Source: patient Mode of arrival: Ambulatory Limitations: No Limitations - History of Present Illness Initial comments: Patient is a 55-year-old -[place]is[place] female with no past medical history presented to the ED with complaint of acute onset persistent severe itchy burning painful right lateral mid posterior thoracic area from midline to under her right breast on her bra line for the last 1 week. Patient states that he was evaluated initially by her cooking casing and drying supervisor who after checking her labs advised her that they could not identify what could be causing her symptoms. Patient states that her symptoms have gotten worse in the last 4 days such that she has not been able to sleep because of worsening pain which forces her to apply ice to the area to soothe it. Patient states that the pain is mainly localized in the area with a severe burning painful itchy sensation which is not even relieved by application of ice. Patient denies fever, chills, nausea, vomiting, dizziness, syncope, chest pain, shortness of breath, cough, traumatic injury, heavy lifting, abdominal pain or headache. MD Complaint: Burning painful sensation in the right lateral posterior thoracic area -: Sudden, week(s) (1) Location: back (Right lateral mid posterior thoracic area) Radiation: non-radiation Severity scale (0 -10): 8 Quality: burning, aching, sharp Consistency: constant Improves with: none Worsens with: none Associated Symptoms: denies other symptoms. denies: confusion, chest pain, cough, diaphoresis, fever/chills, headaches, loss of appetite, malaise, nausea/vomiting, rash, seizure, shortness of breath, syncope, weakness, other Treatments Prior to Arrival: none - Related Data Previous Rx's Medication Instructions Recorded Last Taken Type Metoprolol Xl [Metoprolol 25 mg PO QDAY #30 tablet 11/24/15 Unknown Rx SUCCINATE ER TAB] Esomeprazole Magnesium [Nexium 20 mg PO QDAY #20 capsule. 07/04/18 Unknown Rx 24Hr] Naproxen 500 mg PO BID PRN #30 tablet 04/30/20 Unknown Rx Famotidine [Pepcid] 20 mg PO Q12H #60 tablet 06/30/20 Unknown Rx Ondansetron [Zofran Odt] 4 mg PO Q6HR PRN #15 tab.rapdis 06/30/20 Unknown Rx Gabapentin 300 mg PO QHS #30 cap 07/17/21 Unknown Rx Ibuprofen [Motrin] 600 mg PO Q8H PRN #30 tablet 07/17/21 Unknown Rx Valacyclovir HCl [Valacyclovir] 1,000 mg PO Q8H #30 tablet 07/17/21 Unknown Rx traMADoL [Ultram] 50 mg PO Q6HR PRN #12 tablet 07/17/21 Unknown Rx Allergies Allergy/AdvReac Type Severity Reaction Status Date / Time No Known Allergies Allergy Verified 11/22/15 22:26 ED Review of Systems ROS: Stated complaint: LIGHT HEADED/SKIN BURNING Other details as noted in HPI Constitutional: denies: chills, fever Eyes: denies: eye pain, eye discharge, vision change ENT: denies: ear pain, throat pain Respiratory: denies: cough, shortness of breath, wheezing Cardiovascular: denies: chest pain, palpitations Endocrine: no symptoms reported Gastrointestinal: denies: abdominal pain, nausea, diarrhea Genitourinary: denies: urgency, dysuria, discharge Musculoskeletal: back pain (Itchy painful burning sensation on the posterior lateral mid thoracic area). denies: joint swelling, arthralgia Skin: denies: rash, lesions Neurological: denies: headache, weakness, paresthesias Psychiatric: denies: anxiety, depression Hematological/Lymphatic: denies: easy bleeding, easy bruising ED Past Medical Hx - Past Medical History Hx Congestive Heart Failure: No Hx Diabetes: No Hx Asthma: No Hx COPD: No Hx HIV: No Additional medical history: palpitations(related to my hormones/menopause) - Surgical History Past Surgical History?: No - Social History Smoking Status: Never Smoker Substance Use Type: None - Medications Home Medications: Home Medications Medication Instructions Recorded Confirmed Last Taken Type Metoprolol Xl [Metoprolol 25 mg PO QDAY #30 tablet 11/24/15 Unknown Rx SUCCINATE ER TAB] Esomeprazole Magnesium [Nexium 20 mg PO QDAY #20 capsule. 07/04/18 Unknown Rx 24Hr] Naproxen 500 mg PO BID PRN #30 tablet 04/30/20 Unknown Rx Famotidine [Pepcid] 20 mg PO Q12H #60 tablet 06/30/20 Unknown Rx Ondansetron [Zofran Odt] 4 mg PO Q6HR PRN #15 tab.rapdis 06/30/20 Unknown Rx Gabapentin 300 mg PO QHS #30 cap 07/17/21 Unknown Rx Ibuprofen [Motrin] 600 mg PO Q8H PRN #30 tablet 07/17/21 Unknown Rx Valacyclovir HCl [Valacyclovir] 1,000 mg PO Q8H #30 tablet 07/17/21 Unknown Rx traMADoL [Ultram] 50 mg PO Q6HR PRN #12 tablet 07/17/21 Unknown Rx ED Physical Exam - General Limitations: No Limitations General appearance: alert, in no apparent distress - Head Head exam: Present: atraumatic, normocephalic, normal inspection - Eye Eye exam: Present: normal appearance, PERRL, EOMI Pupils: Present: normal accommodation - ENT ENT exam: Present: normal exam, normal orophraynx, mucous membranes moist, TM's normal bilaterally, normal external ear exam - Neck Neck exam: Present: normal inspection, full ROM - Respiratory Respiratory exam: Present: normal lung sounds bilaterally. Absent: respiratory distress, wheezes, rales, rhonchi, chest wall tenderness, accessory muscle use, decreased breath sounds, prolonged expiratory - Cardiovascular Cardiovascular Exam: Present: regular rate, normal rhythm, normal heart sounds. Absent: systolic murmur, diastolic murmur, rubs, gallop - GI/Abdominal GI/Abdominal exam: Present: soft, normal bowel sounds. Absent: tenderness, guarding, rebound, hyperactive bowel sounds, hypoactive bowel sounds, organomegaly, mass - Extremities Exam Extremities exam: Present: normal inspection, full ROM, normal capillary refill. Absent: tenderness - Back Exam Back exam: Present: normal inspection, full ROM, tenderness (Palpable severe localized tenderness on the posterior right lateral mid thoracic area), muscle spasm, rash noted (Mildly erythematous maculopapular vesicular rashes on right lateral mid posterior thoracic area). Absent: CVA tenderness (L), paraspinal tenderness, vertebral tenderness - Neurological Exam Neurological exam: Present: alert, oriented X3, CN II-XII intact, normal gait, reflexes normal - Psychiatric Psychiatric exam: Present: normal affect, normal mood - Skin Skin exam: Present: warm, dry, intact, normal color, rash (Mild erythematous maculopapular vesicular rashes on right lateral mid posterior thoracic area), erythema, vesicles ED Course Vital Signs 07/17/21 19:35 Temperature 98.0 F Pulse Rate 89 Respiratory 16 Rate Blood Pressure 124/56 [Left] O2 Sat by Pulse 99 Oximetry ED Medical Decision Making - Lab Data Result diagrams: 07/17/21 21:04 07/17/21 21:04 - Medical Decision Making This is a 55-year-old -Wallis[place] female with no past medical history presented to the ED with complaint of acute onset persistent severe itchy burning painful right lateral mid posterior thoracic area from midline to under her right breast on her bra line for the last 1 week. Patient states that he was evaluated initially by her cooking casing and drying supervisor who after checking her labs advised her that they could not identify what could be causing her symptoms. Patient states that her symptoms have gotten worse in the last 4 days such that she has not been able to sleep because of worsening pain which forces her to apply ice to the area to soothe it. Patient states that the pain is mainly localized in the area with a severe burning painful itchy sensation which is not even relieved by application of ice. In the ED, patient is alert and oriented x3 and is not in any distress. Physical exam reveals a palpable localized severe tenderness on right lateral mid posterior thoracic area with mild erythematous maculopapular vesicular rashes. Patient was presumptively diagnosed with shingles outbreak and was discharged home on valacyclovir 1 g p.o. 3 times a day for 10 days in addition to pain medications. Patient was advised to follow-up with her primary care physician in 7 to 10 days for reevaluation or return to the ED immediately if symptoms get worse. - Differential Diagnosis Shingles; cellulitis; muscle strain; Critical care attestation.: If time is entered above; I have spent that time in minutes in the direct care of this critically ill patient, excluding procedure time. ED Disposition Clinical Impression: Shingles outbreak Qualifiers: Herpes zoster complications: without complications Qualified Code(s): B02.9 - Zoster without complications Disposition: 01 HOME / SELF CARE / HOMELESS Is pt being admited?: No Does the pt Need Aspirin: No Condition: Stable Instructions: Shingles, [id number] Additional Instructions: Your symptoms are likely due to a shingles outbreak which has not manifested in the skin yet. Therefore take medications as advised until the end, drink plenty of fluids and follow-up with your primary care physician in 7 to 10 days for reevaluation. Return to the ED immediately if symptoms get worse. Prescriptions: Gabapentin 300 mg PO QHS #30 cap Ibuprofen [Motrin] 600 mg PO Q8H PRN #30 tablet PRN Reason: Pain traMADoL [Ultram] 50 mg PO Q6HR PRN #12 tablet PRN Reason: Pain Valacyclovir HCl [Valacyclovir] 1,000 mg PO Q8H #30 tablet Referrals: OSITO FAIRAS MD [Staff Physician] - 7-10 days Time of Disposition: 23:15 Print Language: BELARUSIAN
== END 2021-07-18 00:06 | disposition home or self-care (01) ==
LOC: ED 19:32
DX: B02.9 Zoster without complications (principal)
CPT/HCPCS: 36415; 80053; 85025; 99283

== ENCOUNTER 2021-11-21 11:20 | Emergency (ER) | payer OTHER ==
--- NOTE | 2021-11-21 13:18 | XRay Report ---
CHEST 2 VIEWS INDICATION / CLINICAL INFORMATION: chest pain. FINDINGS: SUPPORT DEVICES: None. HEART / MEDIASTINUM: No significant abnormality. LUNGS / PLEURA: No significant pulmonary or pleural abnormality. No pneumothorax. ADDITIONAL FINDINGS: No significant additional findings. IMPRESSION: 1. No acute findings. Signer Name: Jan Costa MD Signed: 11/21/2021 1:14 PM Workstation Name: [id number]
[2021-11-21 14:22] LABS: Basophils % (Auto) 0.4 % (0.0-1.8); Eosinophils # (Auto) 0.1 K/mm3 (0.0-0.4); Eosinophils % (Auto) 1.7 % (0.0-4.3); Hematocrit 34.5 % (30.3-42.9); Hemoglobin 11.6 gm/dl (10.1-14.3); Lymphocytes # (Auto) 1.7 K/mm3 (1.2-5.4); Lymphocytes % (Auto) 33.8 % (13.4-35.0); Mean Corpuscular HGB Conc 34 % (30-34); Mean Corpuscular Volume 92 fl (79-97); Monocytes # (Auto) 0.5 K/mm3 (0.0-0.8); Monocytes % (Auto) 9.9 % (0.0-7.3); Platelet Count 168 K/mm3 (140-440); Red Blood Count 3.76 M/mm3 (3.65-5.03); Red Cell Distribution Width 13.4 % (13.2-15.2)
[2021-11-21 14:37] LABS: Alanine Aminotransferase 18 units/L (7-56); Albumin 4.8 g/dL (3.9-5); Blood Urea Nitrogen 10 mg/dL (7-17); Calcium 9.9 mg/dL (8.4-10.2); Hemolysis Index 5
[2021-11-21 14:41] LABS: BUN/Creatinine Ratio 14
[2021-11-21 16:12] LABS: Bilirubin,Urine NEG (Negative); Blood,Urine NEG (Negative); Color,Urine Straw (Yellow); Protein,Urine <15 mg/dL mg/dL (Negative); Urobilinogen,Urine < 2.0 mg/dL (<2.0); WBC,Urine < 1.0 /HPF (0.0-6.0)
--- NOTE | 2021-11-21 17:02 | Emergency Department Report ---
ED General Adult HPI - General Chief complaint: Abdominal Pain Stated complaint: LIGHT HEADED Time Seen by Provider: 11/21/21 13:03 Source: patient Mode of arrival: Ambulatory Limitations: No Limitations - History of Present Illness Initial comments: Patient presents with complaints of right sided back pain, sharp/achy, non radiating, 5/10 @ its peak, worsened by truncal movements, relieved by rest. Denies numbness (including saddle anesthesia), weakness, bowel or urinary incontinence, dysuria, frequency, urgency, CP, SOB, palpitations, recent fall, trauma or heavy lifting. Sleeps usually on her R side and fell asleep recently on a couch. Was seen @ [facility] urgent care and discharged with a prescription of hydrocodone. However, the medication is making her groggy. Severity scale (0 -10): 5 - Related Data Previous Rx's Medication Instructions Recorded Last Taken Type Metoprolol Xl [Metoprolol 25 mg PO QDAY #30 tablet 11/24/15 1 Day Ago Rx SUCCINATE ER TAB] ~11/20/21 Cyclobenzaprine HCl [Flexeril 5 MG 1 tab PO Q8H PRN 10 Days #30 tab 11/21/21 Unknown Rx TAB] Allergies Allergy/AdvReac Type Severity Reaction Status Date / Time No Known Allergies Allergy Verified 11/21/21 13:43 ED Review of Systems ROS: Stated complaint: LIGHT HEADED Other details as noted in HPI Comment: All other systems reviewed and negative Constitutional: denies: chills, fever ED Past Medical Hx - Past Medical History Hx Congestive Heart Failure: No Hx Diabetes: No Hx Asthma: No Hx COPD: No Hx HIV: No Additional medical history: palpitations(related to my hormones/menopause) - Social History Smoking Status: Never Smoker Substance Use Type: None - Medications Home Medications: Home Medications Medication Instructions Recorded Confirmed Last Taken Type Metoprolol Xl [Metoprolol 25 mg PO QDAY #30 tablet 11/24/15 11/21/21 1 Day Ago Rx SUCCINATE ER TAB] ~11/20/21 Cyclobenzaprine HCl [Flexeril 5 MG 1 tab PO Q8H PRN 10 Days #30 tab 11/21/21 Unknown Rx TAB] ED Physical Exam - General Limitations: No Limitations General appearance: alert, in no apparent distress - Head Head exam: Present: atraumatic, normocephalic - Eye Eye exam: Present: PERRL, EOMI - ENT ENT exam: Present: mucous membranes moist, other (airway patent) - Neck Neck exam: Present: other (supple; no JVD) - Respiratory Respiratory exam: Present: other (good air entry, nml I:E, CTAB, no use of ISMAEL) - Cardiovascular Cardiovascular Exam: Present: regular rate. Absent: rubs, gallop - GI/Abdominal GI/Abdominal exam: Present: other (soft; non tender; non distended) - Extremities Exam Extremities exam: Present: other (no lower extremity edema; non tender calves; neg Moira's sign bilaterally) - Back Exam Back exam: Present: other (non tender midline; tender to palpation over R lower ribs) - Neurological Exam Neurological exam: Present: alert, oriented X3, CN II-XII intact. Absent: motor sensory deficit - Skin Skin exam: Present: warm, normal color ED Course Vital Signs 11/21/21 11/21/21 12:31 17:08 Temperature 98.3 F 98.1 F Pulse Rate 69 79 Respiratory 18 16 Rate Blood Pressure 90/61 138/89 [Right] O2 Sat by Pulse 99 99 Oximetry ED Medical Decision Making - Lab Data Result diagrams: 11/21/21 13:50 11/21/21 13:50 Laboratory Tests 11/21/21 11/21/21 11/21/21 13:50 13:50 13:50 WBC 4.9 RBC 3.76 Hgb 11.6 Hct 34.5 MCV 92 MCH 31 MCHC 34 RDW 13.4 Plt Count 168 Lymph % (Auto) 33.8 [place] % (Auto) 9.9 H Eos % (Auto) 1.7 Baso % (Auto) 0.4 Lymph # (Auto) 1.7 [place] # (Auto) 0.5 Eos # (Auto) 0.1 Baso # (Auto) 0.0 Seg Neutrophils % 54.2 Seg Neutrophils # 2.7 D-Dimer < 135.00 Sodium 142 Potassium 4.1 Chloride 103.0 Carbon Dioxide 27 Anion Gap 16 BUN 10 Creatinine 0.7 Estimated GFR > 60 BUN/Creatinine Ratio 14 Glucose 80 Calcium 9.9 Total Bilirubin 0.40 AST 19 ALT 18 Alkaline Phosphatase 50 Troponin T < 0.010 Total Protein 7.1 Albumin 4.8 Albumin/Globulin Ratio 2.1 Lipase Urine Color Urine Turbidity Urine pH Ur Specific [place] Urine Protein Urine Glucose (UA) Urine Ketones Urine Blood Urine Nitrite Urine Bilirubin Urine Urobilinogen Ur Leukocyte Esterase Urine WBC (Auto) Urine RBC (Auto) 11/21/21 11/21/21 13:50 15:48 WBC RBC Hgb Hct MCV MCH MCHC RDW Plt Count Lymph % (Auto) [place] % (Auto) Eos % (Auto) Baso % (Auto) Lymph # (Auto) [place] # (Auto) Eos # (Auto) Baso # (Auto) Seg Neutrophils % Seg Neutrophils # D-Dimer Sodium Potassium Chloride Carbon Dioxide Anion Gap BUN Creatinine Estimated GFR BUN/Creatinine Ratio Glucose Calcium Total Bilirubin AST ALT Alkaline Phosphatase Troponin T Total Protein Albumin Albumin/Globulin Ratio Lipase 24 Urine Color Straw Urine Turbidity Clear Urine pH 6.0 Ur Specific [place] 1.006 Urine Protein <15 mg/dl Urine Glucose (UA) Neg Urine Ketones Neg Urine Blood Neg Urine Nitrite Neg Urine Bilirubin Neg Urine Urobilinogen < 2.0 Ur Leukocyte Esterase Sm Urine WBC (Auto) < 1.0 Urine RBC (Auto) 0.0 CXR: no acute cardiopulmonary process Patient refused EKG - Medical Decision Making Diff dz: Back pain: likely 2/2 thoracic strain. No signs of pyelonephritis, ureterolithiasis, biliary disease, vertebral fracture/subluxation/osteomyelitis, epidural abscess/hematoma, cord compression or cauda equina. PE, pneumonia, pneumothorax, pancreatitis ruled out. ACS unlikely. Critical care attestation.: If time is entered above; I have spent that time in minutes in the direct care of this critically ill patient, excluding procedure time. ED Disposition Clinical Impression: Upper back pain on right side Disposition: 01 HOME / SELF CARE / HOMELESS Is pt being admited?: No Does the pt Need Aspirin: No Condition: Stable Instructions: Acute Back Pain, Adult, Abdominal Pain (ED) Additional Instructions: Follow up with your regular doctor within 2 - 4 days. Return to the ER if your symptoms worsen or do not improve. Prescriptions: Cyclobenzaprine HCl [Flexeril 5 MG TAB] 1 tab PO Q8H PRN 10 Days #30 tab PRN Reason: Muscle Spasm Referrals: PRIMARY CARE, [Primary Care Provider] - 3-5 Days Forms: AMA Form Time of Disposition: 19:00 (Patient advised to stop taking the hydrocodone. )
[2021-11-21 17:11] VITALS: BP 138/89
== END 2021-11-21 17:08 | disposition home or self-care (01) ==
LOC: ED 11:20
DX: M54.9 Dorsalgia, unspecified (principal)
CPT/HCPCS: 36415; 71046; 80053; 81001; 83690; 84484; 85025; 85379; 99283

== ENCOUNTER 2021-12-23 12:51 | Emergency (ER) | payer OTHER ==
[2021-12-23 13:05] VITALS: BP 116/87
[2021-12-23 13:44] LABS: Basophils % (Auto) 0.6 % (0.0-1.8); Hematocrit 39.3 % (30.3-42.9); Hemoglobin 12.7 gm/dl (10.1-14.3); Lymphocytes # (Auto) 1.8 K/mm3 (1.2-5.4); Lymphocytes % (Auto) 38.5 % (13.4-35.0); Mean Corpuscular HGB Conc 32 % (30-34); Mean Corpuscular Volume 94 fl (79-97); Monocytes # (Auto) 0.5 K/mm3 (0.0-0.8); Monocytes % (Auto) 10.8 % (0.0-7.3); Platelet Count 240 K/mm3 (140-440); Red Cell Distribution Width 14.1 % (13.2-15.2)
[2021-12-23 13:52] LABS: INR 1.09 (0.87-1.13)
[2021-12-23 13:53] LABS: Partial Thromboplastin Time 33.5 Sec. (24.2-36.6)
[2021-12-23 14:09] LABS: Alanine Aminotransferase 31 units/L (7-56); BUN/Creatinine Ratio 16; Blood Urea Nitrogen 13 mg/dL (7-17); Calcium 9.8 mg/dL (8.4-10.2); Hemolysis Index 7
--- NOTE | 2021-12-23 14:35 | XRay Report ---
CHEST 2 VIEWS INDICATION: cp. COMPARISON: 11/21/2021 FINDINGS: SUPPORT DEVICES: None. HEART: Within normal limits. LUNGS/PLEURA: No acute air space or interstitial disease. No pneumothorax. ADDITIONAL FINDINGS: None. IMPRESSION: 1. No acute findings. Signer Name: Eyal Kitchen MD Signed: 12/23/2021 2:30 PM Workstation Name: [id number]
[2021-12-23 14:54] LABS: Free T4 (Free Thyroxine) 1.06 ng/dL (0.76-1.46)
--- NOTE | 2021-12-24 10:12 | Electrocardiograph Report ---
[facility] Test Date: 2021-12-23 Test Time: 12:58:38 Pat Name: LORNA MCCLENDON Department: Room: Gender: F [employer]ounds Maintenance Manager: LATHA : 1965 Requested By: RITU ROLON Order Number: [id number] Reading MD: Josh Sen Measurements Intervals [place] Rate: 126 P: [place]: QRS: -36 QRSD: 71 T: 35 QT: 306 QTc: 444 Interpretive Statements Junctional tachycardia Left axis deviation nonspecific st-t Compared to ECG 06/06/2021 19:52:24 Left-axis deviation now present Myocardial infarct finding now present Electronically Signed On 12-24-2021 10:11:57 EDT by Josh Sen
== END 2021-12-23 19:00 | disposition left against medical advice (07) ==
LOC: ED 12:51
DX: R00.2 Palpitations (principal); Z53.21 Procedure and treatment not carried out due to patient leaving prior to being seen by health care provider
CPT/HCPCS: 36415; 71046; 80053; 83735; 84439; 84443; 84484; 85025; 85610; 85730; 93005